=== PATIENT | male | born 1945 | race Caucasian/White ===

== ENCOUNTER 2019-09-09 16:16 | Observation (INO) | payer MEDICARE, OTHER, SELFPAY ==
[2019-08-27 09:44] VITALS: BMI 29.5
[2019-09-08] VITALS (14 sets, daily range): BP systolic 105–139; BP diastolic 66–89; PULSE 49–741; RESP 11–92; TEMP 35.9–36.9; O2SAT 91–97; BMI 29.1
--- NOTE | 2019-09-08 06:00 | DI.RAD.S_ITS ---
PROCEDURE: XR KNEE LT 1TO2V INDICATIONS: tka TECHNIQUE: 2 view(s) of the knee acquired. COMPARISON: None. FINDINGS: Bones: Patient is status post knee joint arthroplasty. Hardware components are in expected positions. Visualized bony structures are intact. Soft tissues: Overlying postoperative changes are noted. IMPRESSION: Status post left total knee arthroplasty. Dictated by: Danielle Dean M.D. on 09/08/2019 at 15:12 Approved by: Danielle Dean M.D. on 09/08/2019 at 15:12
[2019-09-08] MEDS: LACTATED RINGERS 1,000 ML 42 ML IV ×2 (11:25→14:37)
[2019-09-08] MEDS: PREGABALIN 75 MG CAPSULE PO (11:26)
[2019-09-08] MEDS: ACETAMINOPHEN 325 MG TABLET 975 MG PO ×2 (11:26→22:20)
[2019-09-08] MEDS: CELECOXIB 200 MG CAPSULE PO (11:27)
--- NOTE | 2019-09-08 12:07 | PM.PREOP ---
Pre-operative Note Interval Note History & Physical reviewed/Exam performed by Physician: Yes Changes to H&P: No
[2019-09-08] MEDS: CEFAZOLIN 2 GM/100 ML FROZ.PIGGY IV ×2 (12:50→22:23)
[2019-09-08] MEDS: TRANEXAMIC ACID 1,000 MG VIAL 2000 MG INJ ×2 (13:15→14:15)
--- NOTE | 2019-09-08 13:21 | SUR.OPER ---
Supine on padded OR bed. Pillow under head, arms secured on padded armboards <90 degree abduction. Safety belt across torso. Non-operative leg secured with tape over blanket over lower leg. Operative leg secured in DeMayo/Higinio positioner.
[2019-09-08] MEDS: BUPIVACAINE 0.25% W/ EPI 30 ML VIAL 60 ML INJ (13:27)
[2019-09-08] MEDS: BUPIVACAINE LIPOSOME 266 MG/20 ML VIAL INJ (13:27)
[2019-09-08] MEDS: MORPHINE 4 MG/ML INJ SUBCUT (13:33)
--- NOTE | 2019-09-08 14:52 | PM.OP.1 ---
Operative Date/Time/Diagnoses Date of procedure: 09/08/19 Time of procedure: 14:45 Pre-op diagnosis: Left knee osteoarthritis Post-op diagnosis: same Procedure & Clinicians Procedure: Left total knee replacement Same procedure as scheduled: Yes Indications: The patient has had progressively worsening left knee pain with radiographic changes consistent with arthritis. Non-operative management has failed and the patient has requested total knee replacement. The risks, benefits and alternatives to surgery were discussed with the patient prior to proceeding. Risks discussed included, but were not limited to, failure to relieve pain, stiffness, infection, nerve damage, deep venous thrombosis, pulmonary embolism, stroke, coma, heart attack, permanent paralysis and , as well as the potential need for eventual revision of the prosthetic. Surgeon: Stuart Ross Winder Hand: Mercedez Romero Click Yes if Unassisted: No Anesthesia Type: General, Spinal and Local Operative Notes Findings: Severe medial compartment osteoarthritis with subluxation of the tibia. Closure Type: primary Specimen(s): none sent Prosthetic devices, grafts, tissues, transplants, or devices: Implants used in this procedure were manufactured by the [employer] and [employer] and included the BCS II Journey total knee replacement with a size 7 left cobalt chromium femur, a size 7 left non porous tibial base plate, a 9 mm cross-linked polyethylene tibial insert, and a 35 mm oval Divine II patellar component. Applied: implant(s) Estimated Blood Loss (mL): 25 Blood products transfused: none Tourniquet time (min): 55 Procedure in detail: The patient was seen in the pre-operative area, where the left knee was identified as the operative site and this was marked with my initials. The patient received pre-operative antibiotics, and was taken to the operating room and placed on the operative table in the supine position. After satisfactory anesthesia, a multimedia services manager out was performed. The left leg was encircled with a tourniquet about the proximal thigh, and the leg was prepared from the toes to the tourniquet with ChloroPrep in the usual fashion and draped through sterile drapes. The leg was elevated and exsanguinated with Eschmark bandage and the tourniquet inflated to 250 mmHg pressure. The knee was approached through an approximately 18 cm incision centered over the patella and carried into the knee through a medial parapatellar arthrotomy. The anterior osteophytes and soft tissues were removed. The rotational landmarks of [place]'s line and the transepicondylar axis were marked on the femur with electrocautery, and intramedullary guide holes for the femur and tibia were created. The distal femoral cut was made in 6 degrees of valgus using the intramedullary guide at the primary cut setting. The proximal tibial cut was then made using the intramedullary guide, taking 9 mm of bone off the less involved side. The extension gap was checked and the rotation of the femoral component confirmed with the gap balancing blocks. The anterior, posterior and chamfer cuts were then made. The posterior osteophytes and soft tissues were then removed. The posterior capsule was injected with part of a mixture of 60 ml 0.25% Marcaine mixed with 20 ml Exparel and 4 mg of morphine for post-operative pain control. The remainder of this mixture was injected into the capsule and subcutaneous tissues during cement curing. The tibia was prepared with the rotation set by an extra medullary guide. Trial tibial and femoral components were then placed and the intercondylar notch cut through the femoral trial. Range of motion was 0-140 degrees, with good stability throughout the range. The patella was then cut to accommodate the patellar prosthetic. There was no need for a lateral release. The trials were then removed, and the femoral hole plugged with a bone plug. The bone was prepared with pulsatile lavage, and dried with a sponge. Cement was applied and the final prosthetics placed. Excess cement was removed during and after cement curing. After confirming there was no extruded cement posteriorly, the final tibial insert was placed. The knee was copiously irrigated and the tourniquet deflated. Hemostasis was obtained. The capsule was closed with interrupted # 2 polyester sutures. The subcutaneous layer was closed with 3-0 Vicryl, and the skin with a running 3-0 V-Lock suture and SteriStrips. An Aquacel Ag dressing was applied and the patient was taken to recovery having tolerated the procedure well. Complications: none Post-operative Condition: stable Disposition: PACU Plan for aftercare: The patient will be maintained on a standard total knee replacement protocol with weight bearing as tolerated. The patient will receive aspirin and sequential compression devices for DVT prophylaxis. The patient will be discharged home when safe for the home environment.
--- NOTE | 2019-09-08 15:39 | SUR.PHASEI ---
1525 to room 213, bed down and locked, call light within reach, SCDs on. VSS. Pt. alert and oriented, continues to deny pain/nausea. resp unlabored, skin warm and dry. Report given and pt introduced to RN. no questions/concerns.
[2019-09-08] MEDS: LACTATED RINGERS 1,000 ML 125 ML IV (15:59)
[2019-09-08] MEDS: DOCUSATE 100 MG CAPSULE PO (22:22)
[2019-09-08] MEDS: ASPIRIN EC 81 MG TABLET PO (22:22)
[2019-09-08] MEDS: SIMVASTATIN 40 MG TABLET PO (22:23)
[2019-09-08] MEDS: SODIUM CHLORIDE 0.9% FLUSH 10 ML IV (23:30)
[2019-09-09] VITALS (7 sets, daily range): BP systolic 113–131; BP diastolic 67–79; PULSE 59–86; RESP 14–18; TEMP 36.7–37; O2SAT 92–96
--- NOTE | 2019-09-09 00:07 | PC.NURSE ---
Evening notes: At 1535 [place] brought to rm 213 from PACU via bed, he was wide awake, oriented x3 and situation. RA oxygen 94% but after I left room, his continuous pulse ox was alarming down to 68%, I instructed deep breathing, use of IS and applied 2 L O2 via NC. Since that time pulse ox has not alarmed, 2L O2 sat remains 92-96% Drsg to L knee is CDI, reported numbness to nahomy LE's at that time, since 193 denies further numbness & has good sensation. Able to move LLE but not lift it. Wearing bilateral SCD's. IV infusing to hand with no difficulty. No void, at 2229 bladder scan = 461 ml. At that time I talked with him about standing order for straight cath, patient requesting to try again in an hour. We talked about how standing at side of bed may help. Fall precautions in place, patient instructed to use call button for any needs/concerns. Alarm active.
[2019-09-09] MEDS: LACTATED RINGERS 1,000 ML 125 ML IV ×2 (00:08→08:28)
--- NOTE | 2019-09-09 00:56 | PC.NURSE ---
Addendum entered by Shannan Aguirre R.N. 09/09/19 07:38: Dr Ross here this morning and informed of placement of indwelling catheter. MD will write order as is in agreement with decision to place. Addendum entered by Shannan Aguirre R.N. 09/09/19 06:46: Slept for past several hours. Denies any pain this morning. Still some bleeding from urinary meatus; cath care provided. Addendum entered by Shannan Aguirre R.N. 09/09/19 03:06: Patient again complaining of pressure in bladder and being unable to urinate. Stood at side of bed to try to void but unable to do so. Bladder scan showing 667cc in bladder. Discussed with coordinator and rather than doing another straight cath placed indwelling catheter. Still having penile bleeding. States pain in penis worse than knee but states knee pain is 3/10; requested/medicated with Percocet. Original Note: Patient is alert and oriented. Breath sounds CTA with oxygen at 1L/min per NC and sat of 93%; still on continuous oximetry. HRR. Denies nausea. BT present; denies flatus. At shift change had not voided and previous shift bladder scan showed 460cc in bladder. Stood at side of bed with walker and 1 assist but still unable to void and bladder scan now indicating 729cc in bladder. Straight cath performed as per MD order; catheterization difficult due to enlarged prostate so met with resistance and having some penile bleeding post cath. Urine was clear omaira 825cc out. Instructed in sx/prevention of UTI. Able to turn self in bed. Aquacel dressing with mason wrap over is CDI. Denies pain but ice provided for comfort. CMS is intact. Does have some weakness in left LE. Wearing bilateral calf SCD's. Reports fall in past 3 months so fall risk score is high and bed alarm is activated; verbalizes understanding.
[2019-09-09] MEDS: OXYCODONE/ACETAMINOPHEN 5/325 TABLET 1 TAB PO (03:01)
[2019-09-09 07:19] LABS: Hematocrit 38.8 % (41-53); Hemoglobin 13.4 g/dL (13.5-17.5)
--- NOTE | 2019-09-09 07:39 | PM.PNPO.1 ---
Subjective Subjective Date Patient Seen: 09/09/19 Time Patient Seen: 07:39 Interval history: The patient reports minimal pain at his left knee surgical site. There is mild left thigh pain. He had urinary retention overnight requiring 2 attempts a catheterization. On the 2nd attempt a Baker catheter was left in place. Exam Vital Signs (past 8 hours): - 09/09/19 05:55 Temperature 98.4 F Pulse Rate 75 Respiratory Rate 16 Blood Pressure 115/74 Pulse Oximetry 94 Oxygen Delivery Method Nasal Cannula Oxygen Flow Rate 2 Narrative Exam Narrative: Left knee wound is dressed with no drainage on the bandage. Calf is soft. Light touch and motion are intact in the left lower extremity. Objective Labs Result Diagrams: 09/09/19 06:37 Labs: Laboratory Results - last 24 hr 09/09/19 06:37 Hgb 13.4 L Hct 38.8 L Assessment & Plan Post-op Postoperative Procedures: Procedures Operation Date: 09/08/19 12:45 Actual Procedures Side Surgeon p Total Knee Arthroplasty Left Stuart Ross MD Postoperative day: 1 Postoperative status: doing well, urinary retention and anemia Postoperative status narrative: The patient is stable from the standpoint of his left total knee replacement. He has a mild post hemorrhagic anemia. He does have significant urinary retention requiring placement of a Baker catheter. Postoperative plan: routine post-op care and ambulate Postoperative plan narrative: We will leave the Baker in place until tomorrow morning. He will be maintained in the hospital overnight as result of his urinary retention. We will advance physical therapy. We will try voiding trials tomorrow morning and hopefully send him home after he voids spontaneously. If at that point he has ongoing urinary retention we will provide him with a leg bag and a urologic referral. Time Spent With Patient Time with patient: less than 15 minutes Quality VTE Deep Vein Thrombosis/Pulmonary Embolism Present on Admission: No
[2019-09-09] MEDS: METFORMIN HCL 500 MG TABLET 250 MG PO (08:24)
[2019-09-09] MEDS: ASPIRIN EC 81 MG TABLET PO ×2 (08:24→21:11)
[2019-09-09] MEDS: MELOXICAM 7.5 MG TABLET 15 MG PO (08:25)
[2019-09-09] MEDS: DOCUSATE 100 MG CAPSULE PO ×2 (08:26→21:11)
[2019-09-09] MEDS: hydroCHLOROthiazide 12.5 MG CAPSULE PO (08:26)
[2019-09-09] MEDS: OXYCODONE IR 5 MG TABLET PO (08:26)
[2019-09-09] MEDS: ACETAMINOPHEN 325 MG TABLET 975 MG PO ×2 (08:27→14:50)
--- NOTE | 2019-09-09 11:23 | PT.IIE ---
Current Diagnoses Unilateral primary osteoarthritis, left knee (09/08/19) Surgery Performed Operation Date: 09/08/19 12:45 Actual Procedures p Total Knee Arthroplasty(Left) - Stuart Ross MD Surgical History (Last Updated 08/27/19 @ 10:58 by Brielle Briones RN) H/O cardiac radiofrequency ablation (Acute) H/O vasectomy (Acute) History of arthroplasty of right knee (Acute) Hx of appendectomy (Acute) Hx of cardiac cath (Acute) Hx of hernia repair (Acute) Hx of sinus surgery (Acute) Hx of tonsillectomy (Acute) S/P LASIK surgery of both eyes (Acute) Medical History (Last Updated 08/27/19 @ 10:40 by Brielle Briones RN) Acid reflux (Acute) Arthritis (Acute) Diabetes (Acute) Enlarged prostate (Acute) Hearing impaired (Acute) HLD (hyperlipidemia) (Acute) HTN (hypertension) (Acute) Hyperthyroidism (Acute) Low back pain (Acute) Non-sustained ventricular tachycardia (Acute) Osteoarthritis (Acute) RBBB (right bundle branch block) (Acute) Urinary urgency (Acute) Physical Therapy Inpatient Evaluation/Re-Eval M1 PT/OT-IP Prior Functional Status Start: 09/09/19 09:07 Freq: NEEDED Status: Active Protocol: Document 09/09/19 11:07 AW (Rec: 09/09/19 11:23 AW [id number]) Medical Review Prior Functional Status Medical History Reviewed Yes Diet/Fluid Consistency Regular Communication Able to make needs known Mobility and Gait Pt was independent with all mobility, no need for AD Activities of Daily Living and IADL's Indpendent Prior Functional Level (Other details) Pt reports prior activity level of riding stationary bike ~45 minutes per day. Social History Household Members none Living Arrangements House Number of Floors (Floors) One Floor Number of Stairs To Enter/Railing? 0 ALBER Home Environment Standard Height Toilet,Tub/ Shower Home Equipment Front Wheel Walker,Straight Cane,Crutches,Grab Bars Near Toilet Employment Status Retired Additional Social History Comment Pt's girlfriend will be in the home and available to assist as needed through Sunday. M2 PT-IP Current Condition Start: 09/09/19 09:07 Freq: NEEDED Status: Active Protocol: Document 09/09/19 11:07 AW (Rec: 09/09/19 11:23 AW [id number]) Physical Therapy Current Condition Current Condition Evaluation Date 09/09/19 Treatment Diagnosis s/p L TKA, difficulty in walking Weight Bearing Status Weight Bearing Status Weight Bear as Tolerated M3 PT-IP Subjective Start: 09/09/19 09:07 Freq: NEEDED Status: Active Protocol: Document 09/09/19 11:07 AW (Rec: 09/09/19 11:23 AW [id number]) Subjective Physical Therapy Visit Type Type Initial Evaluation Visit Start Time 09:47 Visit Stop Time 10:25 Total Visit Minutes 38 Number of HOG WORKER Visits 0 Physical Therapy Visit Comments Patient Comments Pt up in chair and ready to mobilize with PT Patient Goals Pt would like to discharge to home Therapy Pain Assessment Pain When Pain Assessed During Mobility Pain Present Pain Present Pain Reported Location Left Knee Intensity 2 Scale Used 2/10 at rest; no increase with mobility Pain Management Techniques Apply Cold,Re-positioning, Timing of Activity with Medications M4 PT-IP Mobility and Gait Start: 09/09/19 09:07 Freq: NEEDED Status: Active Protocol: Document 09/09/19 11:07 AW (Rec: 09/09/19 11:23 AW [id number]) PT-Bed Mobility Assessment Sit to Supine Sit to Supine Standby Assistance Scooting Scooting to Edge of Bed Standby Assistance Scooting Up and Down in Bed Standby Assistance PT-Transfer Assessment Sit to and From Stand Sit to and from Stand Standby Assistance Equipment Transfer Assistive Device Gait Belt,Front Wheeled Walker Orthotic/Prosthetic Devices or Brace: No Transfers Transfer Destination Bed Transfer Technique pt ambulated with FWW Transfer Ability Level of Assist Standby Assistance Comments Mobility Comments Pt required no more than SBA for all mobility, including sit to stand from low chair. Gait Assessment Gait Gait Assistance Required: Standby Assistance Distance (Feet) 120 Able to Maintain Weight Bearing Status Yes During Gait Assistive Devices Assistive Device Gait Belt,Front Wheeled Walker Orthotic/Prosthetic Devices or Brace: No Gait Deviations General Gait Pattern Antalgic,Decreased Stride Length,Decreased Feet Clearance,Step-to Gait Factors Limiting Gait Function Factors Limiting Gait Function Decreased Activity Tolerance, Decreased Strength,Limited Range of Motion Comments Gait Comments Pt ambulated 120' using FWW SBA. He demonstrated antalgic step-to gait pattern but was able to equalize step length in response to cues. He did use excessive knee extension throughout LLE stance phase. He appropriately used FWW to off-weight LLE as needed PT-Balance Assessment Sitting Balance and Reactions Static Sitting Balance Ability Good Dynamic Sitting Balance Ability Good Standing Balance and Reactions Static Standing Balance Ability Good Dynamic Standing Balance Ability Good Device Used FWW M5 PT-IP Objective Assessments Start: 09/09/19 09:07 Freq: NEEDED Status: Active Protocol: Document 09/09/19 11:07 AW (Rec: 09/09/19 11:23 AW [id number]) Orientation Orientation/Cognition Level of Alertness Alert Orientation Name,Date,Place,Situation Language Function Ability No Deficits Noted Safety Awareness Decreased Safety Awareness Memory Description No Deficits Noted Comments Pt is impulsive, expressing interest in progressing to gait with single axillary cruth as soon as possible. Gross Range of Motion Upper Extremity ROM Assessment Within Functional Limits Lower Extremity ROM Assessment Left Impaired Strength Upper Extremity Strength Assessment Within Functional Limits Lower Extremity Strength Assessment Left Impaired Comments Strength Comments RLE grossly 5/5 Coordination Assessment Gross Coordination Gross Coordination WNL Sensation Assessment Sensation Gross Sensation WNL M6 PT-IP Treatment Start: 09/09/19 09:07 Freq: NEEDED Status: Active Protocol: Document 09/09/19 11:07 AW (Rec: 09/09/19 11:23 AW [id number]) Physical Therapy Treatment Exercises Exercises Ankle Pumps,Quad Sets,Heel Slides,Passive Knee Extension Hang Education Education Provided Precautions,Weight Bearing Status,Post-Op Packet,Safety Other Treatments Other Treatment Performed Educated pt to continue using FWW until seen by outpatient PT. M7 PT-IP Assessment and Plan Start: 09/09/19 09:07 Freq: NEEDED Status: Active Protocol: Document 09/09/19 11:07 AW (Rec: 09/09/19 11:23 AW [id number]) PT Summary Assessment and Plan Potential Rehabilitation Potential Excellent Summary Impairments Pain,ROM,Strength,Transfers, Gait Assessment Summary Pt is a 73 yo man seen for PT evaluation on POD1 following L TKA. PLOF: Pt was active and independent with all mobilty and ADL's. CLOF: Pt required no more than SBA for all mobility. Gait with FWW was characterized by step-to pattern and vaulting on the LLE. Pt able to demonstrate swing-through pattern with cues, but continued to use excessive knee extension during LLE stance. He will benefit from PT to address safety issues and gait. PT recommends discharge to home with assist from significant other when medically cleared. Outpatient PT is also recommended; pt notes this is already scheduled. Pt left up in chair with call light and table within reach. Advised pt to use call light for all mobility needs. Goals Bed Mobility Goal Independent Transfer Goal Independent Gait Goal Independent Gait Distance 250 Frequency of Treatment Frequency Of Treatment Twice a Day Treatment Plan Physical Therapy Treatment Plan Bed Mobility Training,Transfer Training,Gait Training, Therapeutic Exercise,Balance Retraining,Post Op Education, Discharge Planning,Hot or Cold Pack,Neuromuscular Re-ed, Coordination Retraining,Manual Therapy Recommendations To Nursing Amount of Assist Needed Standby Assistance Discharge Recommendations PT Discharge Recommendations Home with Assistance, Outpatient PT
--- NOTE | 2019-09-09 13:15 | PT.IPTN ---
Current Diagnoses Unilateral primary osteoarthritis, left knee (09/08/19) Surgery Performed Operation Date: 09/08/19 12:45 Actual Procedures p Total Knee Arthroplasty(Left) - Stuart Ross MD Physical Therapy Treatment Note M2 PT-IP Current Condition Start: 09/09/19 09:07 Freq: NEEDED Status: Active Protocol: Document 09/09/19 11:07 AW (Rec: 09/09/19 11:23 AW [id number]) Physical Therapy Current Condition Current Condition Evaluation Date 09/09/19 Treatment Diagnosis s/p L TKA, difficulty in walking Weight Bearing Status Weight Bearing Status Weight Bear as Tolerated M3 PT-IP Subjective Start: 09/09/19 09:07 Freq: NEEDED Status: Active Protocol: Document 09/09/19 13:15 SP (Rec: 09/09/19 13:29 SP [id number]) Subjective Physical Therapy Visit Type Type Treatment Note Visit Start Time 12:45 Visit Stop Time 13:15 Total Visit Minutes 30 Number of MARINE WELDER Visits 1 Physical Therapy Visit Comments Patient Comments Pt resting in bed, agreeable to therapy. Reported his L knee is about 3/10, might call nurse for meds for pain control, unsure when last taken. Patient Goals Pt wants to discharge to home. Therapy Pain Assessment Pain When Pain Assessed At Rest Pain Present Pain Present Pain Reported Location Left Knee Intensity 3 Scale Used 3/10 at rest, 3-4/10 with mobility Pain Management Techniques Apply Cold,Re-positioning, Timing of Activity with Medications M4 PT-IP Mobility and Gait Start: 09/09/19 09:07 Freq: NEEDED Status: Active Protocol: Document 09/09/19 13:15 SP (Rec: 09/09/19 13:29 SP [id number]) PT-Bed Mobility Assessment Sit to Supine Sit to Supine Standby Assistance Scooting Scooting to Edge of Bed Standby Assistance Scooting Up and Down in Bed Standby Assistance PT-Transfer Assessment Sit to and From Stand Sit to and from Stand Standby Assistance,Use of Upper Extremities Equipment Transfer Assistive Device Gait Belt,Front Wheeled Walker Orthotic/Prosthetic Devices or Brace: No Transfers Transfer Destination Bed Transfer Technique Pt ambulated with FWW Transfer Ability Level of Assist Standby Assistance Comments Mobility Comments Pt required no more than SBA for all mobility, including sit to stand from low chair. Gait Assessment Gait Gait Assistance Required: Standby Assistance Distance (Feet) 212 Able to Maintain Weight Bearing Status Yes During Gait Assistive Devices Assistive Device Gait Belt,Front Wheeled Walker Gait Deviations General Gait Pattern Antalgic,Decreased Stride Length,Decreased Feet Clearance,Step-to Gait Factors Limiting Gait Function Factors Limiting Gait Function Decreased Activity Tolerance, Decreased Strength,Limited Range of Motion Comments Gait Comments Pt ambulated 212' using FWW SBA. He demonstrated antalgic step-to gait pattern but was able to equalize step length in response to cues. He did use excessive knee extension throughout LLE stance phase. He appropriately used FWW to off-weight LLE as needed M5 PT-IP Objective Assessments Start: 09/09/19 09:07 Freq: NEEDED Status: Active Protocol: Document 09/09/19 11:07 AW (Rec: 09/09/19 11:23 AW [id number]) Orientation Orientation/Cognition Level of Alertness Alert Orientation Name,Date,Place,Situation Language Function Ability No Deficits Noted Safety Awareness Decreased Safety Awareness Memory Description No Deficits Noted Comments Pt is impulsive, expressing interest in progressing to gait with single axillary cruth as soon as possible. Gross Range of Motion Upper Extremity ROM Assessment Within Functional Limits Lower Extremity ROM Assessment Left Impaired Strength Upper Extremity Strength Assessment Within Functional Limits Lower Extremity Strength Assessment Left Impaired Comments Strength Comments RLE grossly 5/5 Coordination Assessment Gross Coordination Gross Coordination WNL Sensation Assessment Sensation Gross Sensation WNL M6 PT-IP Treatment Start: 09/09/19 09:07 Freq: NEEDED Status: Active Protocol: Document 09/09/19 13:15 SP (Rec: 09/09/19 13:29 SP [id number]) Physical Therapy Treatment Exercises Exercises Ankle Pumps,Quad Sets,Heel Slides,Straight Leg Raises, Supine Hip Abduction,Passive Knee Extension Hang Education Education Provided Precautions,Weight Bearing Status,Post-Op Packet,Safety Other Treatments Other Treatment Performed Educated pt to continue using FWW until seen by outpatient PT. M7 PT-IP Assessment and Plan Start: 09/09/19 09:07 Freq: NEEDED Status: Active Protocol: Document 09/09/19 11:07 AW (Rec: 09/09/19 11:23 AW [id number]) PT Summary Assessment and Plan Potential Rehabilitation Potential Excellent Summary Impairments Pain,ROM,Strength,Transfers, Gait Assessment Summary Pt is a 73 yo man seen for PT evaluation on POD1 following L TKA. PLOF: Pt was active and independent with all mobilty and ADL's. CLOF: Pt required no more than SBA for all mobility. Gait with FWW was characterized by step-to pattern and vaulting on the LLE. Pt able to demonstrate swing-through pattern with cues, but continued to use excessive knee extension during LLE stance. He will benefit from PT to address safety issues and gait. PT recommends discharge to home with assist from significant other when medically cleared. Outpatient PT is also recommended; pt notes this is already scheduled. Pt left up in chair with call light and table within reach. Advised pt to use call light for all mobility needs. Goals Bed Mobility Goal Independent Transfer Goal Independent Gait Goal Independent Gait Distance 250 Frequency of Treatment Frequency Of Treatment Twice a Day Treatment Plan Physical Therapy Treatment Plan Bed Mobility Training,Transfer Training,Gait Training, Therapeutic Exercise,Balance Retraining,Post Op Education, Discharge Planning,Hot or Cold Pack,Neuromuscular Re-ed, Coordination Retraining,Manual Therapy Recommendations To Nursing Amount of Assist Needed Standby Assistance Discharge Recommendations PT Discharge Recommendations Home with Assistance, Outpatient PT
[2019-09-09] MEDS: OXYCODONE IR 10 MG TABLET PO ×3 (13:20→21:11)
[2019-09-09] MEDS: SODIUM CHLORIDE 0.9% FLUSH 10 ML IV ×2 (14:50→21:07)
--- NOTE | 2019-09-09 17:28 | CM.DANOTE ---
Discharge Planning/Care Management DCP: assessment: case received, EMR reviewed. Discussed in Team Rounds. Pt is a 73 year old male who admitted yesterday for a planned L TKA. Surgeon: Dr. Ross PCP: Timo Mon : listed on face sheet Payer: Medicare and a supplement/not identified on face sheet. Admission status: confirmed now by UR CYNTHIA Gann: SDC and then a change to OBS on 09/09 as pt is not going to d/c today. At time of Rounds PT had not yet done the initial evaluation. A check in now shows that he has been seen twice by PT staff and his plan for home with his girlfriend's assist and OUTPT PT is supported by the therapist team. DCP team will follow prn to assist with any needs that may arise tomorrow. P: anticipate at this time: home as above when stable with OUTPT PT and orthopedic followup CM Discharge Assessment Start: 09/09/19 17:27 Freq: Status: Active Protocol: Document 09/09/19 17:27 ITV (Rec: 09/09/19 17:27 ITV [id number]) Discharge Planning Assessment Advance Directives? Yes Advance Directives on File No History Provided By Medical Record Prior Living Arrangements House Household Members none Review Status In Process Pre-Anesthesia Assessment Start: 08/27/19 09:44 Freq: Status: Complete Protocol: Document 08/27/19 09:44 CAB (Rec: 08/27/19 10:57 CAB [id number]) Pre-Anesthesia Assessment PAC Comment Pt MORONGO, states he won't bring his hearing aids, encouraged him to do so. Patient Also Known As (AKElaina) Ricky Patient Information Reviewed Via Phone Assessment Assessment Completed With Patient Diagnostic Results BMP/CMP,CBC,EKG Comment Outside Labs/EKG scanned to record Primary Care Provider Supriya Mon Medical Clearance Received Yes Specialist Seen Garbage Pick Up Man,Orthopedist Comment PCP Pre-op clearance 07/15/19 scanned to record Primary Language Citizen Of [place] Metal Painter Required No Height 182.88 cm Weight 98.883 kg Body Mass Index (BMI) 29.5 Hearing Ability Hard of Hearing,Use of Hearing Aid Visual Assist Magnifying Glass Dentition Type Teeth, Natural Present Barriers to Learning Auditory Hx Anesthesia Reactions No Hx Family Anesthesia Reaction No Hx Malignant Hyperthermia No Hx Blood Transfusions No Anesthesia Review Requested No 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 can check on alcohol intake current alcohol intake frequency holidays/special occasions only Smoking Status Never smoker Substance Use Type does not use Pain Present Pain Reported Musculoskeletal Symptoms Abnormal Gait,Back Pain, Difficulty Walking,Joint Pain History of Falling (Recent or History of No ) Patient is completely paralyzed or No completely immobile Mental Status Oriented to own ability Is patient on oxygen? No Does patient have BELLO/SOB No Hx Sleep Apnea No Currently Taking a Beta Layla No Can You Climb a Flight of Stairs Without No SOB Hx Chest Pain No Hx SOB No Hx Syncope or Dizziness No Anti-Coagulant Therapy Yes: 162mg Aspirin Has a Garbage Pick Up Man Yes: [facility]-last visit 06/05/19 Cardiac Testing Yes: Echo 11/29/18, MR Cardiac angio 01/27/19 both @ [facility] Hx Pacemaker/ICD No Pacemaker Rep Required? No Comment Cardiac records scanned to record Diet Type At Home Regular dysphagia Yes: Occasional w/solids Comment Avoiding sugar Genitourinary Symptoms Change in Urinary Stream, Difficulty Urinating,Dribbling Bladder Pattern Frequency,Retention,Urgency Urinary Catheter Present No Hx Urinary Self Catheterization No Diabetes Yes: Pt does not check blood sugar at home HgbA1C 5.9 Date 06/27/19 Hx Drug Resistant Organism No Presence of External or Internal Medical Yes: Right knee prosthesis Devices Have you traveled outside the [facility] States in the last 30 days? Marital Status Lives With none Prior Living Arrangements House Number of Floors (Floors) One Floor Support System Significant Other Patient Discharge Plan Description Return Home Comment No plans for anyone to stay w/ pt to assist w/care @ [facility] can check on Feels Safe in Current Environment Yes Been Physically Hurt or Threatened By a No Person in Current Environment Do you have thoughts of harming yourself None or others? Are you currently considering suicide? No Do you have a plan to hurt yourself or No Plan others? Do You Have Any Spiritual Beliefs That No May Affect Your HC Choices? Do You Have Any Cultural Practices That No May Affect Your HC Choices? Comment Oriental Orthodox Who Can We Speak to About Patient's Care Family, friends Identifying Code for Release of Patient Declines to issue Information Health Care Proxy/Next of Kin Tracy ([facility] Health Care Proxy Phone Number Pt refuses to give out Advance Directives? Yes Advance Directives on File No Requested Patient Bring Advanced Yes Directives DOS PAC Instructions Durable medical equipment, Medications to take/avoid, Nasal antibiotic,No ETOH/ petroleum product on skin DOS, NPO,Post-op transportation,Pre -surgical wash,Sturdy shoes/ comfortable clothes
[2019-09-09] MEDS: SIMVASTATIN 40 MG TABLET PO (21:11)
[2019-09-10] MEDS: OXYCODONE IR 10 MG TABLET PO ×4 (00:20→09:28)
[2019-09-10 05:00] VITALS: BP 129/68; PULSE 61; RESP 16; TEMP 37; O2SAT 95
--- NOTE | 2019-09-10 06:46 | CM.MNRNOTE ---
Baker discontinued cath. intact & tolerated procedure well. No C/O pain & discomfort, urinal @ bedside table. Encouraged to call for assistance, will monitor.
--- NOTE | 2019-09-10 06:56 | P.DS_ITS ---
History of Present Illness History of Present Illness Date Patient Seen: 09/10/19 Time Patient Seen: 06:56 Chief complaint: [id number] left Total Knee Arthroplasty Narrative: The history and physical is in contained in the chart previously completed note. Please refer to that note for this information. Discharge Providers Provider Date of admission: 09/08/19 10:50 Discharge Date: 09/10/19 Primary care physician: Supriya Mon PA-C Consults: 09/08/19 15:34 Consult to Discharge Planning Routine Comment: Consult to Physical Therapy Evaluate & Treat Comment: Physician Instructions: postop TKA protocol Discharge provider: Stuart Ross MD Summary Hospital Course Discharge Diagnosis: 1. Left knee osteoarthritis 2. Post hemorrhagic anemia 3. Urinary retention Hospital Course: The patient was admitted to the hospital and taken directly to the operating room on September 08, 2019 where he underwent an uncomplicated left total knee replacement. He had a mild post hemorrhagic anemia postoperatively. He made excellent progress with physical therapy. He did have urinary retention on postoperative day 1 requiring the placement of a Baker catheter which was left in and he was kept in the hospital until postoperative day 2. At the time of this dictation the catheter has been discontinued and he is undergoing a vo iding trial. He has been given a prescription for Flomax. The plan is for discharge later this morning if he can void spontaneously. If he is unable to void spontaneously, a Baker catheter will be reinserted and he will be given a leg bag and a referral to urology. Status at Discharge Cognitive/behavioral status at discharge: oriented Functional status at discharge: uses cane/walker Overall status at discharge: patient is progressing back to baseline Time Spent with Patient Time spent: Less than 30 minutes Exam Vital Signs (past 8 hours): - 09/09/19 23:00 09/10/19 05:00 Temperature 98.4 F 98.6 F Pulse Rate 69 61 Respiratory Rate 16 16 Blood Pressure 120/70 129/68 Pulse Oximetry 95 95 Oxygen Delivery Method Room Air Oxygen Flow Rate 0 Narrative Exam Narrative: Left knee wound is dressed with no drainage on the bandage. Calf is soft. Light touch and motion are intact in the left lower extremity. Objective Labs Result Diagrams: 09/09/19 06:37 Labs: Laboratory Results - last 24 hr 09/09/19 06:37 Hgb 13.4 L Hct 38.8 L Discharge Plan Discharge Plan Patient Disposition: Home Discharge Med Rec/Prescriptions Prescriptions: New acetaminophen 325 mg Tablet 975 mg PO TID 30 Days Qty: 270 RF: 0 aspirin 81 mg Tablet,Delayed Release (Dr/Ec) 81 mg PO BID 42 Days Qty: 84 RF: 0 tamsulosin [Flomax] 0.4 mg Capsule 0.4 mg PO DAILY Qty: 30 RF: 0 oxycodone 5 mg Tablet 5 mg PO Q3HR PRN (Reason: Pain, Moderate (4-6)) Qty: 40 RF: 0 Continued metformin 500 mg Tablet 250 mg PO QAM RF: 0 ibuprofen 200 mg Capsule 400 mg PO BID RF: 0 simvastatin 40 mg Tablet 40 mg PO BEDTIME RF: 0 losartan 100 mg Tablet 100 mg PO DAILY RF: 0 hydrochlorothiazide 12.5 mg Tablet 12.5 mg PO QAM RF: 0 ranitidine HCl 150 mg Capsule 150 mg PO DAILY RF: 0 Discontinued aspirin [Aspir-81] 81 mg Tablet,Delayed Release (Dr/Ec) 162 mg PO DAILY RF: 0 Follow up/Referrals: Stuart Ross MD [Physician] - 3-5 Days Supriya Mon PA-C [Primary Care Provider] - Provider Discharge Instructions Diet: Diet as Tolerated and Regular Activity: You may bear weight as tolerated on your left leg. Cold/Heat Therapy: Apply ice to the left knee for 15 minutes every hour as needed for pain control. Skin/Wound/Dressing Care Report to your healthcare provider any signs of infection, such as:: chills, fever, night sweats, increased pain, unusual drainage and unusual redness Dressing: Remove the Vazquez wrap 3 days after surgery. You may then shower normally. Leave the deeper dressing in place until follow-up. If the central strip of the deeper dressing becomes saturated with either water or blood please call the office. Visit Report/Discharge Packet Instructions: DI for Knee Replacement Stand Alone Forms: Surgery Discharge Discharge Data Primary Care Provider: Supriya Mon Quality VTE Deep Vein Thrombosis/Pulmonary Embolism Present on Admission: No
[2019-09-10 07:40] VITALS: BP 126/81; PULSE 65; RESP 16; TEMP 36.8; O2SAT 92
[2019-09-10] MEDS: MELOXICAM 7.5 MG TABLET 15 MG PO (09:08)
[2019-09-10 09:09] VITALS: BP 126/81; PULSE 65
[2019-09-10] MEDS: LOSARTAN 50 MG TABLET 100 MG PO (09:09)
[2019-09-10] MEDS: DOCUSATE 100 MG CAPSULE PO (09:10)
[2019-09-10] MEDS: TAMSULOSIN 0.4 MG CAPSULE PO (09:10)
[2019-09-10] MEDS: hydroCHLOROthiazide 12.5 MG CAPSULE PO (09:10)
[2019-09-10] MEDS: METFORMIN HCL 500 MG TABLET 250 MG PO (09:11)
[2019-09-10] MEDS: ACETAMINOPHEN 325 MG TABLET 975 MG PO (09:12)
[2019-09-10] MEDS: ASPIRIN EC 81 MG TABLET PO (09:29)
[2019-09-10 10:09] VITALS: O2SAT 97
--- NOTE | 2019-09-10 15:45 | PT.IPTN ---
Current Diagnoses Unilateral primary osteoarthritis, left knee (09/09/19) Surgery Performed Operation Date: 09/08/19 12:45 Actual Procedures p Total Knee Arthroplasty(Left) - Stuart Ross MD Physical Therapy Treatment Note M2 PT-IP Current Condition Start: 09/09/19 09:07 Freq: NEEDED Status: Discharge Protocol: Document 09/09/19 11:07 AW (Rec: 09/09/19 11:23 AW [id number]) Physical Therapy Current Condition Current Condition Evaluation Date 09/09/19 Treatment Diagnosis s/p L TKA, difficulty in walking Weight Bearing Status Weight Bearing Status Weight Bear as Tolerated M3 PT-IP Subjective Start: 09/09/19 09:07 Freq: NEEDED Status: Discharge Protocol: Document 09/10/19 09:02 CONY (Rec: 09/10/19 11:22 CONY [id number]) Subjective Physical Therapy Visit Type Type Treatment Note Visit Start Time 09:02 Visit Stop Time 09:17 Total Visit Minutes 15 Number of REGULATION SUPERVISOR Visits 0 Physical Therapy Visit Comments Patient Comments Pt up in chair and ready to mobilize with PT. Reported L knee feels stiffer and more painful today. Patient Goals Pt wants to discharge to home. Therapy Pain Assessment Pain When Pain Assessed During Mobility Pain Present Pain Present Pain Reported Location Left Knee Intensity 5 Scale Used 3/10 at rest, 5/10 after ambulation Pain Management Techniques Distraction,Re-positioning M4 PT-IP Mobility and Gait Start: 09/09/19 09:07 Freq: NEEDED Status: Discharge Protocol: Document 09/10/19 09:02 CONY (Rec: 09/10/19 11:22 CONY [id number]) PT-Bed Mobility Assessment Sit to Supine Sit to Supine Independent Scooting Scooting Up and Down in Bed Independent PT-Transfer Assessment Sit to and From Stand Sit to and from Stand Independent,Use of Upper Extremities Equipment Transfer Assistive Device Gait Belt,Front Wheeled Walker Orthotic/Prosthetic Devices or Brace: No Transfers Transfer Destination Bed Transfer Technique Pt ambulated with FWW Transfer Ability Level of Assist Standby Assistance Comments Mobility Comments Pt independent with bed mobility and transfers, requires no more than SBA to ensure safety with ambulation. Gait Assessment Gait Gait Assistance Required: Standby Assistance Distance (Feet) 230 Able to Maintain Weight Bearing Status Yes During Gait Assistive Devices Assistive Device Gait Belt,Front Wheeled Walker Orthotic/Prosthetic Devices or Brace: No Gait Deviations General Gait Pattern Antalgic,Decreased Stride Length,Decreased Feet Clearance,Step-to Gait Factors Limiting Gait Function Factors Limiting Gait Function Decreased Activity Tolerance, Decreased Strength,Limited Range of Motion,Pain,Poor Balance Comments Gait Comments Pt completed standing lateral weight shift with cueing on reaching TKE. Pt ambulated 230 ' using FWW SBA. Pt initiated amb with step to pattern and progressed to antalgic 1/2 step through gait pattern with excess L knee extension, but able to equalize step length and promote L knee flexion with cuing. Uses FWW to off- weight as appropriate. M5 PT-IP Objective Assessments Start: 09/09/19 09:07 Freq: NEEDED Status: Discharge Protocol: Document 09/09/19 11:07 AW (Rec: 09/09/19 11:23 AW [id number]) Orientation Orientation/Cognition Level of Alertness Alert Orientation Name,Date,Place,Situation Language Function Ability No Deficits Noted Safety Awareness Decreased Safety Awareness Memory Description No Deficits Noted Comments Pt is impulsive, expressing interest in progressing to gait with single axillary cruth as soon as possible. Gross Range of Motion Upper Extremity ROM Assessment Within Functional Limits Lower Extremity ROM Assessment Left Impaired Strength Upper Extremity Strength Assessment Within Functional Limits Lower Extremity Strength Assessment Left Impaired Comments Strength Comments RLE grossly 5/5 Coordination Assessment Gross Coordination Gross Coordination WNL Sensation Assessment Sensation Gross Sensation WNL M6 PT-IP Treatment Start: 09/09/19 09:07 Freq: NEEDED Status: Discharge Protocol: Document 09/10/19 09:02 CONY (Rec: 09/10/19 11:22 [id number]) Physical Therapy Treatment Exercises Exercises Heel Slides Knee ROM Measurement 5-90 dg knee flexion Education Education Provided Safety Other Treatments Other Treatment Performed Gait training with FWW. M7 PT-IP Assessment and Plan Start: 09/09/19 09:07 Freq: NEEDED Status: Discharge Protocol: Document 09/10/19 09:02 CONY (Rec: 09/10/19 11:22 [id number]) PT Summary Assessment and Plan Potential Rehabilitation Potential Excellent Status of Condition at Evaluation Stable Summary Impairments Pain,ROM,Strength,Balance,Bed Mobility,Transfers,Gait, Activity Tolerance Progress Towards Goals Safe For Discharge Assessment Summary Pt is independent with all mobility and ADL's. Limited activity tolerance d/t pain irritability. Cont antalgic gait pattern with excess L knee extension and short R stride length due to L knee pain that was improved with minimal cuing. Pt ready to d/c to home with assist from significant other. Goals Bed Mobility Goal Independent Transfer Goal Independent Gait Goal Independent Gait Distance 250 Frequency of Treatment Frequency Of Treatment Discharge Recommendations To Nursing Amount of Assist Needed Standby Assistance Discharge Recommendations PT Discharge Recommendations Home with Assistance, Outpatient PT
== END 2019-09-10 11:10 | disposition home or self-care (01) ==
LOC: AC 09-10 11:15 → OR 09-10 13:00 → AC 09-10 13:02
PROVIDERS: Admitting Provider Orthopaedic Surgery; PCP Physician Assistant; Visit Provider Orthopaedic Surgery
PROC: 0SRD0JZ Replacement of Left Knee Joint with Synthetic Substitute, Open Approach (ICD-10-PCS; CPT 27447; principal; 2019-09-08 12:45)
DX: M17.12 Unilateral primary osteoarthritis, left knee (principal); Z96.651 Presence of right artificial knee joint; I10 Essential (primary) hypertension; E78.00 Pure hypercholesterolemia, unspecified; R33.9 Retention of urine, unspecified
CPT/HCPCS: 27447; 36415; 73560; 82962; 85014; 85018; 94762; 97110; 97116; 97161; C1776; G0378; C9290; J0690; J1100; J2250; J2270; J2274; J2405; J2704; J3010